=== PATIENT | female | born 1985 | race African-American/Black ===

== ENCOUNTER → 2017-04-23 | Outpatient (CLI) | payer OTHER ==
--- NOTE | 2017-04-23 15:13 | REP ---
DIGITAL DIAGNOSTIC UNILATERAL RIGHT BREAST MAMMOGRAPHY WITH CAD AND FOCUSED RIGHT BREAST SONOGRAPHY: HISTORY: Palpable lump right breast inferiorly. 6-o'clock position. Intermittent pain in this location. No comparison imaging. MAMMOGRAPHIC FINDINGS: Routine views of the right breast are augmented by true MLO and magnified focal spot compression CC and MLO views. A skin marker is affixed to the skin at the site of the palpable lump. Mild scattered fibroglandular elements are seen. No mass lesion is seen. The breast parenchyma is predominately fat replaced in the region of the palpable lump. No microcalcification or architectural distortion is seen. SONOGRAPHIC FINDINGS: The right breast is scanned from 5-o'clock position to the 7-o'clock position across the area of the palpable lump. Mildly heterogeneous fibroglandular background echotexture is seen. No cyst, mass, abnormal acoustic shadowing or architectural distortion is seen. IMPRESSION: BI-RADS/ACR category 1 mammogram. Negative. Routine annual screening mammography (for women over age 40). BIRADS category 1 negative right breast imaging. This negative report should not dissuade one from biopsy of a palpable lump depending on its clinical characteristics. Clinical followup is advised. This mammogram was interpreted with the aid of an FDA-approved computer-aided detection system. The patient states she/he had a clinical breast exam in March of 2017. The patient letter being requested is M2. Signed by Anthony Wang MD 04/23/2017 03:14 P
== END ==
LOC: M RAD 14:03
PROVIDERS: ATTEND Nurse Practitioner Family
DX: N60.01 Solitary cyst of right breast (principal)
CPT/HCPCS: 76642; G0206